=== PATIENT | female | born 1990 | race Two or more races ===

== ENCOUNTER 2018-01-20 11:31 | Emergency (ER) | payer SELFPAY ==
[~2018-01-20] VITALS: Ht 182.9 cm; Wt 56.7 kg
[2018-01-20 11:37] VITALS: BP 159/81
[2018-01-20] MEDS ORDERED: KETOROLAC TROMETH 60MG/2ML VIAL IM ONE (14:00)
== END 2018-01-20 14:28 | disposition home or self-care (01) ==
LOC: ER 11:31
DX: M54.41 Lumbago with sciatica, right side (principal); M41.9 Scoliosis, unspecified; Z88.0 Allergy status to penicillin; Z88.1 Allergy status to other antibiotic agents; W19.XXXA Unspecified fall, initial encounter; Y93.89 Activity, other specified; Y99.8 Other external cause status; Y92.89 Other specified places as the place of occurrence of the external cause
CPT/HCPCS: 72100; 73502; 96372; 99284; J1885

== ENCOUNTER 2018-01-20 21:09 | Emergency (ER) | payer SELFPAY ==
[~2018-01-20] VITALS: Ht 180.3 cm; Wt 59.0 kg
[2018-01-20] MEDS ORDERED: MORPHINE SULFATE 8mg/ml INJ SDV IM ONE (22:30)
[2018-01-20] MEDS ORDERED: ONDANSETRON HCL 4 MG/2 ML VIAL IM ONE (22:30)
[2018-01-20] MEDS ORDERED: MORPHINE SULFATE INJECTION 1 ML ONE (22:37)
[2018-01-20 23:00] LABS: Urine Bacteria NONE SEEN /hpf (None Seen); Urine Blood Negative /uL (Negative); Urine Mucus FEW (None Seen); Urine Specific Gravity 1.011 (1.001-1.035); Urine WBC 22 /hpf (0 - 5)
[2018-01-20 23:56] VITALS: BP 125/80
== END 2018-01-21 00:08 | disposition home or self-care (01) ==
LOC: EDBD 21:09 → ER 21:09
DX: M51.27 Other intervertebral disc displacement, lumbosacral region (principal); M79.1 Myalgia; Z88.0 Allergy status to penicillin; Z88.1 Allergy status to other antibiotic agents; W10.9XXA Fall (on) (from) unspecified stairs and steps, initial encounter; Y93.89 Activity, other specified; Y99.8 Other external cause status; Y92.89 Other specified places as the place of occurrence of the external cause
CPT/HCPCS: 72131; 81001; 81025; 96372; 99285; J2270; J2405